=== PATIENT | male | born 1980 | race Caucasian/White ===

== ENCOUNTER 2022-07-15 10:33 | Emergency (ER) | payer OTHER ==
[~2022-07-15] VITALS: Ht 172.7 cm; Wt 84.4 kg
[2022-07-15 10:39] VITALS: BP 133/75
--- NOTE | 2022-07-15 10:40 | NUR ---
[facility] TO ER BED 5
[2022-07-15 11:08] LABS: BASOPHILS # (AUTO) 0.1 K/uL (0.00-0.22); BASOPHILS % (AUTO) 0.8 % (0.0-2.0); EOSINOPHILS # (AUTO) 0.3 K/uL (0-0.4); EOSINOPHILS % (AUTO) 3.4 % (0.0-4.0); HEMATOCRIT 46.8 % (36-52); HEMOGLOBIN 15.5 g/dL (12.0-18.0); LYMPHOCYTES # (AUTO) 2.4 K/uL (2.0-11.5); LYMPHOCYTES % (AUTO) 25.1 % (20.5-51.1); MEAN CORPUSCULAR HEMOGLOBIN 30 pg (27-31); MEAN CORPUSCULAR HGB CONC 33 g/dL (33-37); MEAN CORPUSCULAR VOLUME 89.3 fL (80-94); MONOCYTES # (AUTO) 0.7 K/uL (0.8-1.0); MONOCYTES % (AUTO) 7.1 % (1.7-9.3); NEUTROPHILS # (AUTO) 6.1 K/uL (1.8-7.7); NEUTROPHILS % (AUTO) 63.6 % (42.2-75.2); PLATELET COUNT (AUTO) 322 K/uL (140-450); RED BLOOD CELL COUNT(AUTO) 5.24 MIL/uL (4.20-6.10); RED CELL DISTRIBUTION WIDTH 14.3 % (11.6-13.7); WHITE BLOOD COUNT (AUTO) 9.6 K/uL (4.8-10.8)
[2022-07-15 11:08] LABS: APPEARANCE,URINE CLEAR (CLEAR); BILIRUBIN,URINE NEGATIVE (NEGATIVE); BLOOD, URINE TRACE-I (NEGATIVE); COLOR,URINE YELLOW (YELLOW); LEUKOCYTE ESTERASE ,URINE NEGATIVE (NEGATIVE); NITRITE, URINE NEGATIVE (NEGATIVE); PH,URINE 6.5 (5.0-9.0); UGLUCOSE NEGATIVE (NEGATIVE)
[2022-07-15 11:17] LABS: RBC,URINE 0-5 /HPF (0-5); WBC,URINE 0-5 /HPF (0-5)
[2022-07-15 11:24] LABS: BARBITURATE, URINE NEGATIVE ng/ml (NEG <=200); BENZODIAZEPINE, URINE NEGATIVE ng/mL (NEG <=200); CANNABINOID, URINE NEGATIVE ng/mL (NEG <=50); COCAINE, URINE NEGATIVE ng/mL (NEG <=300); OPIATE, URINE NEGATIVE ng/mL (NEG <=2000); PHENCYCLIDINE SCREEN,URINE NEGATIVE ng/mL (NEG <=25)
[2022-07-15 11:33] LABS: ACETAMINOPHEN < 0.5 ug/ml (10-30); ALBUMIN 3.9 g/dL (3.4-5.0); ANION GAP 15.1 (8-16); ASPARTATE AMINOTRANSFERASE 23 U/L (15-37); CHLORIDE 101 mmol/L (98-107); CREATININE 0.8 mg/dL (0.6-1.3); GFR ARICAN-AMERICAN 136 mL/min (>90); GLUCOSE 103 mg/dL (74-106); LIPASE 205 U/L (73-393); POTASSIUM 4.1 mmol/L (3.5-5.1); SALICYLATE < 2.8 mg/dL (2.8-20.0); SODIUM SERUM 140 mmol/L (136-145); TOTAL BILIRUBIN 0.2 mg/dL (0.0-1.0); UREA NITROGEN, BLOOD 12 mg/dL (7-18)
--- NOTE | 2022-07-15 13:00 | NUR ---
Pt provided with lunch tray.
--- NOTE | 2022-07-15 14:00 | NUR ---
Pt resting in bed. NAD.
--- NOTE | 2022-07-15 18:20 | NUR ---
Pt provided with dinner tray.
--- NOTE | 2022-07-15 19:03 | NUR ---
Pt resting in bed. NAD.
--- NOTE | 2022-07-15 19:32 | NUR ---
VITAL SIGNS OBTAINED, SUICIDE SEVERITY SCREEN COMPLETED. PT IS BEHAVING APPROPRIATLY, HAS CALM DEMEANOR. PT PROVIDED WITH EXTRA BLANKET. SAFETY MEASURES CONTINUED.
--- NOTE | 2022-07-15 19:35 | NUR ---
OBTAINED VERBAL ORDER FROM FOR VITAL SIGNS EVERY SHIFT. ORDER PLACED AND CARRIED OUT.
--- NOTE | 2022-07-15 20:52 | NUR ---
PT APPEARS TO BE RESTING WITH EYES CLOSED, OPENS TO SOUND. EQUAL RISE AND FALL OF CHEST WALL. NO SIGNS AND SYMPTOMS OF DISTRESS.
--- NOTE | 2022-07-15 22:00 | NUR ---
PT APPEARS TO BE RESTING WITH EYES CLOSED, OPENS TO SOUND. EQUAL RISE AND FALL OF CHEST WALL. NO SIGNS AND SYMPTOMS OF DISTRESS.
--- NOTE | 2022-07-16 | NUR ---
PT APPEARS TO BE RESTING WITH EYES CLOSED, OPENS TO SOUND. EQUAL RISE AND FALL OF CHEST WALL. NO SIGNS AND SYMPTOMS OF DISTRESS.
--- NOTE | 2022-07-16 02:00 | NUR ---
PT APPEARS TO BE RESTING WITH EYES CLOSED, OPENS TO SOUND. EQUAL RISE AND FALL OF CHEST WALL. NO SIGNS AND SYMPTOMS OF DISTRESS.
[2022-07-16] MEDS ORDERED: OLANZapine 5 MG ODT PO ONE (16:05)
--- NOTE | 2022-07-16 19:54 | NUR ---
PT RESTING IN BED. PT IN 5150 HOLD. PLACEMENT PENDING. RESP EVEN AND UNLABORED. PT IS A&OX4. IS ACTING APPRORIATELY. SZ PADS ARE IN PLACE BEDSIDE RAILS X2. HOB ELEVATED.
--- NOTE | 2022-07-16 22:09 | NUR ---
PT SLEEPING WITH HOB ELEVATED. RESP EVEN AND UNLABORED.
--- NOTE | 2022-07-17 00:32 | NUR ---
PENDING ACCEPTANCE FOR TRANSFER. PT SLEEPING RESP EVEN AND UNLABORED. BED AT LOWEST POSITION SZ PADS ON SIDE RAILS X2
--- NOTE | 2022-07-17 02:09 | NUR ---
PT SLEEPING WITH HOB ELEVATED RESP EVEN AND UNLABORED. SZ PADS IN PLACE. PT IN VIEW FROM NURSING STATION
--- NOTE | 2022-07-17 04:26 | NUR ---
PT SLEEPING RESP EVEN AND UNLABORED. SZ PADS IN PLACE
--- NOTE | 2022-07-17 07:25 | NUR ---
REPORT RECEIVED FROM ADITYA GOTTLIEB. ASSUMED CARE AT THIS TIME
--- NOTE | 2022-07-17 07:36 | NUR ---
pt at rest w/ eyes closed. in view, respirations even and unlabored. bed at lowest position, bed rails upx2
--- NOTE | 2022-07-17 07:43 | NUR ---
pt provided w/ breakfast. pt awake and in eating in bed
[2022-07-17 08:23] VITALS: BP 111/86
--- NOTE | 2022-07-17 09:35 | NUR ---
pt provided w/ hygiene products. left at bedside
--- NOTE | 2022-07-17 11:47 | NUR ---
PT ON TELEPSYCH W/ MD BRASWELL
--- NOTE | 2022-07-17 11:53 | NUR ---
PER MD BRASWELL , PT TO BE TAKEN OFF HOLD AND OK FOR D/C. Addendum: 07/17/22 at 1156 by PHSEP ERMD MADE AWARE Addendum: 07/17/22 at 1157 by PHSEP PT TO BED STARTED ON RX ZYPREXA 5MG PO BID
[2022-07-17] MEDS ORDERED: OLAN5TAB1 PO ×2 (11:56→12:11)
--- NOTE | 2022-07-17 12:17 | NUR ---
Patient discharged with v/s stable. Written and verbal after care instructions FOR [facility] given and explained. Patient alert, oriented and verbalized understanding of instructions. Ambulatory with steady gait. All questions addressed prior to discharge. ID band removed. Patient advised to follow up with PMD. Rx of ZYPREXA given. Opportunity to ask questions provided and answered.
== END 2022-07-17 12:17 | disposition home or self-care (01) ==
LOC: MED 10:33
DX: R45.851 Suicidal ideations (principal); F20.9 Schizophrenia, unspecified; Z20.822 Contact with and (suspected) exposure to COVID-19; J45.909 Unspecified asthma, uncomplicated; Z86.69 Personal history of other diseases of the nervous system and sense organs
CPT/HCPCS: 36415; 80053; 80305; 81001; 83690; 85025; 87426; 87635; 93005; 99285; G0480; G0482; C9803-CS